=== PATIENT | female | born 1995 | race American Indian/Alaskan Native ===

== ENCOUNTER 2017-10-01 22:38 | Emergency (ER) | payer SELFPAY ==
[2017-10-01 23:15] VITALS: BP 108/71
[2017-10-02] MEDS ORDERED: BOOSTRIX IM ONE (01:04)
[2017-10-02] MEDS ORDERED: XYLOCAINE 2% INFILTRATI ONE ×2 (01:04→01:05)
[2017-10-02] MEDS ORDERED: NORCO 7.5/325 ONE (01:05)
[2017-10-02] MEDS ORDERED: NORCO 7.5/325 PO ONE (01:05)
[2017-10-02] MEDS ORDERED: NACL 0.9% 500 ML IR ONE (01:06)
[2017-10-02] MEDS ORDERED: NACL 0.9% IR ONE (01:09)
--- NOTE | 2017-10-02 01:50 | XRay Report ---
FINAL REPORT PROCEDURE: XR FOREARM LT TECHNIQUE: LEFT forearm radiographs, AP and lateral views. CPT 02964 HISTORY: laceration to forearm COMPARISON: No prior studies are available for comparison. FINDINGS: Fracture (s) and/or Dislocation(s): None . Joint space(s): Normal . Soft tissues: Soft tissue swelling along the lateral proximal forearm.. Bone mineralization: Normal . Foreign bodies: None . IMPRESSION: No evidence of acute fracture. Soft tissue injury lateral proximal forearm
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
== END 2017-10-02 03:21 | disposition home or self-care (01) ==
LOC: ED 22:38
DX: S41.112A Laceration without foreign body of left upper arm, initial encounter (principal); E11.9 Type 2 diabetes mellitus without complications; Y08.89XA Assault by other specified means, initial encounter; Y93.89 Activity, other specified; Y92.89 Other specified places as the place of occurrence of the external cause; Y99.8 Other external cause status
CPT/HCPCS: 90471; 90715

== ENCOUNTER 2017-11-12 13:15 | Emergency (ER) | payer SELFPAY ==
[2017-11-12 13:32] VITALS: BP 114/70
--- NOTE | 2017-11-12 14:27 | Emergency Department Report ---
ED Female HPI - General Chief complaint: Urogenital-Female Stated complaint: HIV/HERPES TEST Time Seen by Provider: 11/12/17 14:13 Source: patient Mode of arrival: Ambulatory Limitations: No Limitations - History of Present Illness Initial comments: This is a 22-year-old female who presents to the ED complaining of malodorous vaginal discharge and some mild low pelvic pain for the past 34 days. Patient states she's been sexually active with her partner since July of this year. Patient states that she got no text from her previous partners partner of a positive herpes test so she is worried she might have an STD. Palpation admits mild dysuria and cloudy urine. She states last menstrual period was 3 18. She denies vaginal bleed, fever, nausea vomiting, abdominal pain or any other problems - Related Data Previous Rx's Medication Instructions Recorded Last Taken Type Gentamicin 0.3% Ophth Soln 2 drops OP Q4H #1 bottle 04/07/15 Unknown Rx Cephalexin [Keflex] 500 mg PO BID #20 capsule 10/02/17 Unknown Rx Ciprofloxacin HCl [Ciprofloxacin 500 mg PO Q12HR #10 tab 11/12/17 Unknown Rx TAB] Ibuprofen 600 mg PO Q8H PRN #20 tablet 11/12/17 Unknown Rx Allergies Allergy/AdvReac Type Severity Reaction Status Date / Time No Known Allergies Allergy Verified 04/07/15 06:11 ED Review of Systems ROS: Stated complaint: HIV/HERPES TEST Other details as noted in HPI Constitutional: denies: chills, fever Eyes: denies: eye pain, eye discharge, vision change ENT: denies: ear pain, throat pain Respiratory: denies: cough, shortness of breath, wheezing Cardiovascular: denies: chest pain, palpitations Endocrine: no symptoms reported Gastrointestinal: denies: abdominal pain, nausea, diarrhea Genitourinary: dysuria, discharge. denies: urgency Musculoskeletal: denies: back pain, joint swelling, arthralgia Skin: denies: rash, lesions, pruritus Neurological: denies: headache, weakness, paresthesias Psychiatric: denies: anxiety, depression Hematological/Lymphatic: denies: easy bleeding, easy bruising ED Past Medical Hx - Past Medical History Previous Medical History?: No Hx Diabetes: Yes Additional medical history: High cholesterol, - Surgical History Past Surgical History?: No - Social History Smoking Status: Never Smoker Substance Use Type: Alcohol, Marijuana - Medications Home Medications: Home Medications Medication Instructions Recorded Confirmed Last Taken Type Gentamicin 0.3% Ophth Soln 2 drops OP Q4H #1 bottle 04/07/15 Unknown Rx Cephalexin [Keflex] 500 mg PO BID #20 capsule 10/02/17 Unknown Rx Ciprofloxacin HCl [Ciprofloxacin 500 mg PO Q12HR #10 tab 11/12/17 Unknown Rx TAB] Ibuprofen 600 mg PO Q8H PRN #20 tablet 11/12/17 Unknown Rx ED Physical Exam - General Limitations: No Limitations General appearance: alert, in no apparent distress - Head Head exam: Present: atraumatic, normocephalic - Eye Eye exam: Present: normal appearance - ENT ENT exam: Present: mucous membranes moist - Neck Neck exam: Present: normal inspection - Respiratory Respiratory exam: Present: normal lung sounds bilaterally. Absent: respiratory distress - Cardiovascular Cardiovascular Exam: Present: regular rate, normal rhythm. Absent: systolic murmur, diastolic murmur, rubs, gallop - GI/Abdominal GI/Abdominal exam: Present: soft, normal bowel sounds - External exam: Present: normal external exam. Absent: erythema, swelling, lesions Speculum exam: Present: vaginal discharge, vaginal bleeding (from cycle just starting ). Absent: erythema, cervical discharge, laceration Bi-manual exam: Present: normal bi-manual exam. Absent: cervical motion tendernes, adnexal tenderness, uterine enlargement, uterine tenderness - Extremities Exam Extremities exam: Present: normal inspection, full ROM - Back Exam Back exam: Present: normal inspection, full ROM. Absent: CVA tenderness (R), CVA tenderness (L) - Neurological Exam Neurological exam: Present: alert, oriented X3 - Psychiatric Psychiatric exam: Present: normal affect, normal mood - Skin Skin exam: Present: warm, dry, intact, normal color. Absent: rash ED Course Vital Signs 11/12/17 13:23 Temperature 98.8 F Pulse Rate 63 Respiratory 17 Rate Blood Pressure 114/70 O2 Sat by Pulse 100 Oximetry ED Medical Decision Making - Medical Decision Making 22-year-old female presents with STD exposure. ED course: urinalysis and gonorrhea and Chlamydia cultures obtained. Urinalysis positive for leukorrhea, bacteria and white blood cell Patient received 250 mg of Rocephin, azithromycin 1 g, Flagyl 2 g. Discussed with patient possible STD due to exposure. Discussed with patient findings and treatment. Discussed with patient gonorrhea and Chlamydia cultures of the back in 3-4 days and she can call for results. Discussed prophylaxis treatment patient is to abstain from sex 7-10 days as treatment. Discussed patient partner knowledge and treatment. Discussed the follow-up with the health department/[place] [facility] for further STD testing. Patient's alert and oriented times 3. Vital signs are normal patient is in no acute discharge. Discussed patient will need to be tested for herpes and other STDs elsewhere because herpes and other std will not be done in the ED today Patient will be discharged home with instructions. Critical care attestation.: If time is entered above; I have spent that time in minutes in the direct care of this critically ill patient, excluding procedure time. ED Disposition Clinical Impression: Exposure to STD, Bacterial vaginosis UTI (urinary tract infection) Qualifiers: Urinary tract infection type: acute cystitis Disposition: TO HOME OR SELFCARE Is pt being admited?: No Does the pt Need Aspirin: No Condition: Stable Instructions: Cervicitis (ED), Sexually Transmitted Diseases (ED), Safe Sex (ED ), Urinary Tract Infection in Women (ED), Bacterial Vaginosis (ED) Additional Instructions: Make sure to follow up with the primary care physician as discussed. Take all your medications as you've been prescribed. If you have any worsening symptoms or develop new symptoms please return to ED immediately. Prescriptions: Ciprofloxacin HCl [Ciprofloxacin TAB] 500 mg PO Q12HR #10 tab Ibuprofen 600 mg PO Q8H PRN #20 tablet PRN Reason: Pain Referrals: PRIMARY CARE, [Primary Care Provider] - 3-5 Days [facility] [Outside] - [facility] - 3-5 Days [facility] [Outside] - 3-5 Days Forms: Accompanied Note, Work/School Release Form(ED), STI Treatment and Prevention Time of Disposition: 16:32
[2017-11-12 14:49] LABS: Bacteria,Urine 1+ /HPF (Negative); Bilirubin,Urine NEG (Negative); Blood,Urine NEG (Negative); Color,Urine Yellow (Yellow); Mucus,Urine 3+ /HPF; Protein,Urine <15 mg/dL mg/dL (Negative); Urobilinogen,Urine < 2.0 mg/dL (<2.0)
[2017-11-12 14:51] LABS: HCG Qualitative,Urine Negative (Negative)
[2017-11-12] MEDS ORDERED: FLAGYL PO ONE (15:55)
[2017-11-12] MEDS ORDERED: ROCEPHIN IM ONE (15:55)
[2017-11-12] MEDS ORDERED: XYLOCAINE 1% MPF 5 mL INFILTRATI ONE (15:55)
[2017-11-12] MEDS ORDERED: ZITHROMAX PO ONE (15:55)
== END 2017-11-12 16:48 | disposition home or self-care (01) ==
LOC: ED 13:15
DX: N39.0 Urinary tract infection, site not specified (principal); N76.0 Acute vaginitis; E11.9 Type 2 diabetes mellitus without complications; E78.00 Pure hypercholesterolemia, unspecified; F12.10 Cannabis abuse, uncomplicated
CPT/HCPCS: 81001; 81025; 87210; 87591; 96372; 99283; J0696